=== PATIENT | male | born 1970 | race African-American/Black ===

== ENCOUNTER 2017-04-29 23:20 | Emergency (ER) | payer BC ==
[2017-04-30 00:06] LABS: APPEARANCE CLEAR (CLEAR); BILIRUBIN NEGATIVE (NEGATIVE); COLOR YELLOW (YELLOW); GLUCOSE 250 mg/dL (NEGATIVE); KETONE NEGATIVE (NEGATIVE); LEUKOCYTE ESTERASE NEGATIVE (NEGATIVE); NITRITE NEGATIVE (NEGATIVE); PROTEIN NEGATIVE (NEGATIVE); UROBILINOGEN NORMAL (NORMAL)
== END 2017-04-30 02:04 | disposition home or self-care (01) ==
LOC: D.ER 23:20
PROVIDERS: Emergency Medicine
DX: E86.0 Dehydration (principal); E11.9 Type 2 diabetes mellitus without complications; I10 Essential (primary) hypertension; F17.200 Nicotine dependence, unspecified, uncomplicated

== ENCOUNTER 2018-09-10 09:57 | Emergency (ER) | payer MEDICAID ==
[2018-09-10 10:32] LABS: BASOPHILS 0 % (0-2); HEMATOCRIT 40.4 % (42.0-54.0); HEMOGLOBIN 13.9 g/dL (13.5-17.5); IMMATURE GRANULOCYTES 0.3 % (0-5); LYMPHOCYTES 37.6 % (15-50); MCH 29.3 pg (26.0-34.0); MCHC 34.4 g/dL (31.0-37.0); MCV 85.2 fL (80.0-100.0); MONOCYTES 8.1 % (2-11); PLATELET COUNT 203 10x3/uL (130-400); RBC 4.74 10x6/uL (4.20-6.10); RDW 12.5 % (11.5-14.5); WBC 6.3 10x3/uL (4.8-10.8)
[2018-09-10 10:41] LABS: APPEARANCE CLEAR (CLEAR); BILIRUBIN NEGATIVE (NEGATIVE); COLOR YELLOW (YELLOW); GLUCOSE 1000 mg/dL (NEGATIVE); KETONE NEGATIVE (NEGATIVE); NITRITE NEGATIVE (NEGATIVE); PROTEIN NEGATIVE (NEGATIVE); UROBILINOGEN NORMAL (NORMAL)
[2018-09-10 10:47] LABS: ALBUMIN 3.7 g/dL (3.4-5.0); ALKALINE PHOSPHATASE 89 U/L (46-116); ALT (SGPT) 27 U/L (10-68); CALC OSMOLALITY 280 mosm/kg (275-300); CALCIUM 8.7 mg/dL (8.5-10.1); CARBON DIOXIDE 26.5 mmol/L (21.0-32.0); CHLORIDE - SERUM 101 mmol/L (98-107); CREATININE - SERUM 0.9 mg/dL (0.6-1.3); POTASSIUM - SERUM 4.1 mmol/L (3.5-5.1); PROTEIN - SERUM 7.8 g/dL (6.4-8.2); SODIUM 136 mmol/L (136-145); UREA NITROGEN 13 mg/dL (7-18); eGFR NON AFRICAN AMERICAN > 90 mL/min (90-120)
[2018-09-10 10:48] LABS: GLUCOSE 261 mg/dL (74-106)
== END 2018-09-10 12:25 | disposition home or self-care (01) ==
LOC: D.ER 09:57
PROVIDERS: Family Medicine
DX: E11.65 Type 2 diabetes mellitus with hyperglycemia (principal); Z79.4 Long term (current) use of insulin; R30.0 Dysuria; M54.5 Low back pain; K21.9 Gastro-esophageal reflux disease without esophagitis; F17.200 Nicotine dependence, unspecified, uncomplicated

== ENCOUNTER 2020-11-28 23:42 | Emergency (ER) | payer MEDICAID ==
[~2020-11-28] VITALS: Ht 165.1 cm; Wt 81.8 kg
[~2020-11-28 23:42] MED LIST: CYCLOBENZAPRINE10 MG PO; ELAVIL75 MG PO; HYDROXYZINE HCL50 MG PO; INSULIN; JARDIANCE25 MG PO; MEDROL DOSE PACK4 MG PO; METFORMIN HCL500 M1 PO; MOBIC7.5 MG PO; NEURONTIN 300300 MG PO; NEURONTIN800 MG PO; TORADOL10 MG PO; TRADJENTA5 MG PO
[2020-11-28 23:43] VITALS: Ht 165.1 cm; Wt 81.8 kg
[2020-11-29 00:01] LABS: BASOPHILS 0.1 % (0-2); EOSINOPHILS 0 % (0-7); HEMATOCRIT 39.6 % (42.0-54.0); HEMOGLOBIN 13.2 g/dL (13.5-17.5); IMMATURE GRANULOCYTES 0.3 % (0-5); LYMPHOCYTE ABS# 1.65 10x3/uL (1.32-3.57); MCH 28.4 pg (26.0-34.0); MCHC 33.3 g/dL (31.0-37.0); MCV 85.3 fL (80.0-100.0); MONOCYTES 3.2 % (2-11); NEUTROPHIL ABS# 9.75 10x3/uL (1.78-5.38); NEUTROPHILS 82.4 % (40-80); PLATELET COUNT 192 10x3/uL (130-400); RBC 4.64 10x6/uL (4.20-6.10); RDW 12.4 % (11.5-14.5); WBC 11.8 10x3/uL (4.8-10.8)
[2020-11-29 00:14] LABS: ALBUMIN 3.7 g/dL (3.4-5.0); ANION GAP 15.6 mmol/L (8-16); BILIRUBIN - TOTAL 0.23 mg/dL (0.2-1.3); CALCIUM 8.8 mg/dL (8.5-10.1); CARBON DIOXIDE 23.1 mmol/L (21.0-32.0); CREATININE - SERUM 1.4 mg/dL (0.6-1.3); POTASSIUM - SERUM 3.7 mmol/L (3.5-5.1); PROTEIN - SERUM 7.4 g/dL (6.4-8.2)
[2020-11-29 05:54] VITALS: BP 132/89
== END 2020-11-29 05:55 ==
LOC: D.ER 23:42
PROVIDERS: Family Medicine
DX: S41.031A Puncture wound without foreign body of right shoulder, initial encounter (principal); K21.9 Gastro-esophageal reflux disease without esophagitis; W34.00XA Accidental discharge from unspecified firearms or gun, initial encounter; Y93.9 Activity, unspecified; Y92.9 Unspecified place or not applicable; E10.40 Type 1 diabetes mellitus with diabetic neuropathy, unspecified